=== PATIENT | female | born 2000 | race African-American/Black ===

== ENCOUNTER 2024-05-07 16:21 | Outpatient (CLI) | payer SELFPAY ==
[~2024-05-07] VITALS: Ht 167.6 cm; Wt 89.0 kg
[2024-05-07] VITALS (11 sets, daily range): BP systolic 119–164; BP diastolic 56–79
[2024-05-07] MEDS ORDERED: LABE100T6 PO (16:40)
[2024-05-07] MEDS ORDERED: ASPI-655 PO (16:40)
[2024-05-07] MEDS ORDERED: PRENTAB9 PO (16:40)
[2024-05-07] MEDS ORDERED: LABE200T5 PO (17:50)
[2024-05-07] MEDS: CALCIUM CARBONATE 500 MG CHEW U/D PO PRN (20:01)
[2024-05-07 20:26] LABS: HEMATOCRIT 34.3 % (36.0-47.0); HEMOGLOBIN 10.7 g/dl (12.0-15.5); MEAN CORPUSCULAR HEMOGLOBIN 24.4 pg (27.0-33.0); MEAN CORPUSCULAR HGB CONC 31.2 g/dl (32.0-36.5); MEAN CORPUSCULAR VOLUME 78.3 fl (80.0-96.0); PLATELET COUNT, AUTOMATED 177 10^3/uL (150-450); RED BLOOD COUNT 4.38 10^6/uL (4.00-5.40); WHITE BLOOD COUNT 5.5 10^3/uL (4.0-10.0)
[2024-05-07 20:45] LABS: TOTAL PROTEIN,RANDOM URINE 11.3 MG/DL (0.0-14.0)
[2024-05-07 20:46] LABS: URIC ACID 3.5 MG/DL (3.1-7.8)
[2024-05-07 20:48] LABS: LDH LACTATE DEHYDROGENASE 166 U/L (120-246)
[2024-05-07 20:50] LABS: ALBUMIN 2.9 G/DL (3.2-5.2); ALKALINE PHOSPHATASE 56 U/L (35-104); ALT/SGPT 18 U/L (7.0-40); AST/SGOT 17 U/L (<34); BILIRUBIN,TOTAL 0.4 MG/DL (0.3-1.2); BLOOD UREA NITROGEN 9 MG/DL (9-23); CARBON DIOXIDE LEVEL 23 MMOL/L (20-31); CHLORIDE LEVEL 105 MMOL/L (98-107); CREATININE FOR GFR 0.58 MG/DL (0.55-1.30); CREATININE,RANDOM URINE 72.8 MG/DL; GLOMERULAR FILTRATION RATE > 60.0 (>60); GLUCOSE, FASTING 95 MG/DL (60-100); SODIUM LEVEL 137 MMOL/L (136-145); TOTAL PROTEIN 6.7 G/DL (5.7-8.2)
== END 2024-05-07 22:30 | disposition home or self-care (01) ==
LOC: M LDO 16:21
PROVIDERS: ATTEND Obstetrics & Gynecology
DX: O10.012 Pre-existing essential hypertension complicating pregnancy, second trimester (principal); Z3A.23 23 weeks gestation of pregnancy; Z87.59 Personal history of other complications of pregnancy, childbirth and the puerperium; Z79.82 Long term (current) use of aspirin; Z87.51 Personal history of pre-term labor
CPT/HCPCS: 80053; 82570; 83615; 84156; 84550; 85027; G0463

== ENCOUNTER → 2024-05-19 | Outpatient (CLI) | payer OTHER ==
[~2024-05-19] MED LIST: ASPI-655 PO; LABE100T6 PO; LABE200T5 PO; PRENTAB9 PO
== END ==
LOC: M RAD 09:41
PROVIDERS: ATTEND Nurse Practitioner Family
DX: O10.012 Pre-existing essential hypertension complicating pregnancy, second trimester (principal)

== ENCOUNTER 2024-06-16 09:42 | Outpatient (CLI) | payer OTHER ==
[~2024-06-16] VITALS: Ht 167.6 cm; Wt 87.5 kg
[2024-06-16] MEDS ORDERED: HOME MED LIST COMPLETE! XX SCH (09:50)
[2024-06-16 09:58] VITALS: BP 138/81
[2024-06-16 10:41] VITALS: BP 139/83
[2024-06-16 11:48] VITALS: BP 133/82
== END 2024-06-16 12:28 | disposition home or self-care (01) ==
LOC: M LDO 09:42
PROVIDERS: ATTEND Advanced Practice Midwife
DX: O99.613 Diseases of the digestive system complicating pregnancy, third trimester (principal); O09.213 Supervision of pregnancy with history of pre-term labor, third trimester; O10.013 Pre-existing essential hypertension complicating pregnancy, third trimester; O09.292 Supervision of pregnancy with other poor reproductive or obstetric history, second trimester; O99.213 Obesity complicating pregnancy, third trimester; E66.09 Other obesity due to excess calories; K52.9 Noninfective gastroenteritis and colitis, unspecified; Z3A.29 29 weeks gestation of pregnancy
CPT/HCPCS: 59025; G0463

== ENCOUNTER → 2024-06-22 | Outpatient (CLI) | payer OTHER ==
[2024-06-22 13:44] LABS: HEMATOCRIT 36.4 % (36.0-47.0); HEMOGLOBIN 10.9 g/dl (12.0-15.5); MEAN CORPUSCULAR HEMOGLOBIN 23.4 pg (27.0-33.0); MEAN CORPUSCULAR HGB CONC 29.9 g/dl (32.0-36.5); MEAN CORPUSCULAR VOLUME 78.1 fl (80.0-96.0); PLATELET COUNT, AUTOMATED 280 10^3/uL (150-450); RED BLOOD COUNT 4.66 10^6/uL (4.00-5.40); WHITE BLOOD COUNT 7.2 10^3/uL (4.0-10.0)
[2024-06-22 14:23] LABS: GLUCOSE CHALLENGE TEST 1 HOUR 153 MG/DL (LESS THAN 140)
[2024-06-22 14:49] LABS: HIV 1&2 SCREEN NEGATIVE (NEGATIVE)
[2024-06-22 14:57] LABS: HEPATITIS C VIRUS ABY INDEX 0.16 INDEX (<0.8)
[2024-06-22 15:52] LABS: GC DNA AMPLIFICATION NEGATIVE (NEGATIVE)
== END ==
LOC: M PLALAB 10:44
PROVIDERS: ATTEND Nurse Practitioner Family
DX: Z34.82 Encounter for supervision of other normal pregnancy, second trimester (principal)

== ENCOUNTER → 2024-06-25 | Outpatient (CLI) | payer OTHER | LOC: M WHC 14:12 | PROVIDERS: ATTEND Nurse Practitioner Family | DX: O10.012 Pre-existing essential hypertension complicating pregnancy, second trimester (principal); Z3A.30 30 weeks gestation of pregnancy ==

== ENCOUNTER → 2024-06-29 | Outpatient (CLI) | payer OTHER ==
[~2024-06-29] MED LIST changes: +METR-265 PO
== END ==
LOC: M LAB 07:34
PROVIDERS: ATTEND Nurse Practitioner Family
DX: R73.09 Other abnormal glucose (principal)

== ENCOUNTER → 2024-06-30 | Outpatient (CLI) | payer OTHER ==
[2024-06-30 13:21] LABS: HEMATOCRIT 34.2 % (36.0-47.0); HEMOGLOBIN 10.3 g/dl (12.0-15.5); MEAN CORPUSCULAR HEMOGLOBIN 23.2 pg (27.0-33.0); MEAN CORPUSCULAR HGB CONC 30.1 g/dl (32.0-36.5); PLATELET COUNT, AUTOMATED 271 10^3/uL (150-450); RED BLOOD COUNT 4.44 10^6/uL (4.00-5.40); WHITE BLOOD COUNT 7.4 10^3/uL (4.0-10.0)
[2024-06-30 13:27] LABS: LDH LACTATE DEHYDROGENASE 193 U/L (120-246)
[2024-06-30 13:28] LABS: ALT/SGPT 17 U/L (7.0-40); AST/SGOT 20 U/L (<34); BILIRUBIN,TOTAL 0.3 MG/DL (0.3-1.2); GLOMERULAR FILTRATION RATE > 60.0 (>60)
[2024-06-30 13:39] LABS: TOTAL PROTEIN,RANDOM URINE 24.5 MG/DL (0.0-14.0)
[2024-06-30 13:43] LABS: CREATININE,RANDOM URINE 158.1 MG/DL
== END ==
LOC: M PLALAB 10:43
PROVIDERS: ATTEND Nurse Practitioner Family
DX: O10.013 Pre-existing essential hypertension complicating pregnancy, third trimester (principal)

== ENCOUNTER 2024-07-02 01:21 | Outpatient (CLI) | payer OTHER ==
[~2024-07-02] VITALS: Ht 167.6 cm; Wt 89.6 kg
[~2024-07-02 01:21] MED LIST changes: -METR-265 PO
[2024-07-02 01:36] VITALS: BP 144/85
[2024-07-02] MEDS ORDERED: HOME MED LIST COMPLETE! XX SCH (01:40)
[2024-07-02 02:28] LABS: KETONE, URINE AUTO RFX NEGATIVE (NEGATIVE); NITRITE, URINE AUTO RFX NEGATIVE (NEGATIVE); RBC, URINE AUTO RFX 0 /HPF (0-3); SQUAM EPITHELIAL CELL UR AURFX 6 /HPF (0-6); WBC, URINE AUTO RFX 5 /HPF (0-3)
[2024-07-02 02:45] LABS: LEUKOCYTE ESTERASE UR AUTO RFX 1+ (NEGATIVE)
[2024-07-02] MEDS ORDERED: METR-265 PO (03:07)
[2024-07-02] MEDS: metroNIDAZOLE (FLAGYL) 500MG TABLET PO ONE (03:13)
[2024-07-02 03:16] VITALS: BP 133/85
[2024-07-02] MEDS: BETAMETHASONE SOLUSPAN 6MG/ML 5ML VIAL IM STA (04:13)
== END 2024-07-02 04:28 | disposition home or self-care (01) ==
LOC: M LDO 01:21
PROVIDERS: ATTEND Obstetrics & Gynecology
DX: O23.593 Infection of other part of genital tract in pregnancy, third trimester (principal); O47.03 False labor before 37 completed weeks of gestation, third trimester; O10.013 Pre-existing essential hypertension complicating pregnancy, third trimester; O09.293 Supervision of pregnancy with other poor reproductive or obstetric history, third trimester; Z3A.31 31 weeks gestation of pregnancy
CPT/HCPCS: 59025; 81001; 82731; 87086; 96372; G0463; J0702

== ENCOUNTER 2024-07-03 02:49 | Inpatient (IN) | payer OTHER ==
[2024-07-03] VITALS (11 sets, daily range): BP systolic 113–142; BP diastolic 60–79; O2SAT 98–99
[~2024-07-03] VITALS: Ht 167.6 cm; Wt 88.8 kg
[~2024-07-03 02:49] MED LIST changes: +METR-265 PO
[2024-07-03] MEDS ORDERED: HOME MED LIST COMPLETE! XX SCH (03:05)
[2024-07-03] MEDS ORDERED: TRANEXAMIC ACID INJection 1,000 MG in NS 100 ML IV PRN (03:15)
[2024-07-03] MEDS ORDERED: OXYTOCIN INJ 10UNITS/ML 1ML VIAL IM PRN (03:15)
[2024-07-03] MEDS ORDERED: LIDOCAINE 1% MDV 20ML VIAL INFIL PRN (03:15)
[2024-07-03] MEDS ORDERED: CARBOPROST TROMETHAMINE 250 MCG/ML AMP IM PRN (03:15)
[2024-07-03] MEDS: LACTATED RINGER'S 1000 ML IV STA (03:43)
[2024-07-03] MEDS: MAGNESIUM *L&D* 4GM/100ML BAG (40MG/ML) IV ONE (03:43)
[2024-07-03] MEDS: PENICILLIN G POTASSIUM 5 MU IV 5 MU in DEXTROSE 5% (D5W) MINI-BAG PLU 100 ML IV STA (03:44)
[2024-07-03] MEDS: BETAMETHASONE SOLUSPAN 6MG/ML 5ML VIAL IM STA (03:44)
[2024-07-03 03:55] LABS: HEMATOCRIT 33.5 % (36.0-47.0); HEMOGLOBIN 10.2 g/dl (12.0-15.5); MEAN CORPUSCULAR HEMOGLOBIN 23.1 pg (27.0-33.0); MEAN CORPUSCULAR HGB CONC 30.4 g/dl (32.0-36.5); PLATELET COUNT, AUTOMATED 272 10^3/uL (150-450); RED BLOOD COUNT 4.41 10^6/uL (4.00-5.40); WHITE BLOOD COUNT 10.5 10^3/uL (4.0-10.0)
[2024-07-03] MEDS: MAG Sulf (OBGYN) 20GM/500ML 20,000 MG in IV 1 EA IV SCH (03:56)
[2024-07-03 03:59] LABS: TOTAL PROTEIN,RANDOM URINE 30.4 MG/DL (0.0-14.0)
[2024-07-03] MEDS ORDERED: INSULIN REGULAR IN 0.9 % NACL 100 UNIT in IV 1 EA IV SCH (04:00)
[2024-07-03] MEDS ORDERED: INSULIN IV RATE CHANGE DOCUMENTATION ML/HR XX SCH (04:00)
[2024-07-03] MEDS ORDERED: NS (Normal Saline) 0.9% 1,000 ML IV SCH (04:00)
[2024-07-03] MEDS ORDERED: D5W/0.9% SODIUM CHLORIDE 1,000 ML IV SCH (04:00)
[2024-07-03 04:04] LABS: CREATININE,RANDOM URINE 120.6 MG/DL
[2024-07-03 04:13] LABS: LDH LACTATE DEHYDROGENASE 188 U/L (120-246)
[2024-07-03 04:14] LABS: ALT/SGPT 19 U/L (7.0-40); AST/SGOT 18 U/L (<34); BILIRUBIN,TOTAL 0.4 MG/DL (0.3-1.2); CREATININE FOR GFR 0.55 MG/DL (0.55-1.30); GLOMERULAR FILTRATION RATE > 60.0 (>60)
[2024-07-03] MEDS ORDERED: EPIDURAL/PCA KEYS XX PRN (04:20)
[2024-07-03] MEDS ORDERED: ONDANSETRON 4MG 2ML VIAL IV PRN (04:20)
[2024-07-03] MEDS ORDERED: LR 500 ML IV PRN (04:20)
[2024-07-03] MEDS ORDERED: ePHEDrine SULFATE 25 MG/5 ML(5MG/ML) SYRINGE IVP PRN (04:20)
[2024-07-03] MEDS ORDERED: NALOXONE INJ 0.4MG/1ML VIAL IV PRN (04:20)
[2024-07-03] MEDS ORDERED: FENTANYL/ROPIVACAINE/NACL BAG 100 ML EPIDURAL SCH (04:20)
[2024-07-03] MEDS ORDERED: diphenhydrAMINE 50MG/ML VIAL IV PRN (04:20)
[2024-07-03] MEDS: OXYTOCIN DRIP 30 UNITS in IV 1 EA IV PRN (04:30)
[2024-07-03 04:35] LABS: CORD GAS ABE V -1.9; CORD GAS O2 SAT V 64.8 %; CORD GAS PCO2 V 40.1 mmHg; CORD GAS PH V 7.377 UNITS; CORD GAS PO2 V 24.8 mmHg; CORD GAS SBC V 22.1 MMOL/L; CORD GAS TCO2 V 24.3 MMOL/L
[2024-07-03 04:37] LABS: CORD GAS O2 SAT A 21.8 %; CORD GAS PCO2 A 48.5 mmHg; CORD GAS PH A 7.275 UNITS; CORD GAS PO2 A 12.2 mmHg; CORD GAS SBC A 18.7 MMOL/L; CORD GAS TCO2 A 23.5 MMOL/L
[2024-07-03 04:41] LABS: HIV 1&2 SCREEN NEGATIVE (NEGATIVE)
[2024-07-03] MEDS ORDERED: DOCUSATE SODIUM 100MG CAPSULE PO PRN (04:45)
[2024-07-03] MEDS ORDERED: ANUSOL HC CREAM 30GM TOP PRN (04:45)
[2024-07-03] MEDS ORDERED: MOM 30ML SUSPENSION UDC PO PRN (04:45)
[2024-07-03] MEDS ORDERED: ACETAMINOPHEN 325 MG TAB PO PRN (04:45)
[2024-07-03] MEDS ORDERED: RHOGAM 300MCG (1500IU) INJ IM SCH (04:45)
[2024-07-03] MEDS ORDERED: DIBUCAINE 1% OINTMENT 30GM TOP PRN (04:45)
[2024-07-03] MEDS ORDERED: IBUPROFEN 600MG TAB PO PRN (04:45)
[2024-07-03] MEDS: KETOROLAC 30 MG/ML 1ML VIAL IV ONE (05:09)
[2024-07-03] MEDS ORDERED: PEN G POT 3,000,000 UNIT/50 ML 3,000,000 UNIT in IV 1 EA IV SCH (07:45)
[2024-07-03] MEDS: LABETALOL 200 MG TAB PO SCH (08:13)
[2024-07-03] MEDS: PRENATAL VITAMINS CHEWABLE TABLET PO SCH (09:00)
[2024-07-03] MEDS: IBUPROFEN 800 MG TAB PO PRN (10:21)
[2024-07-03] MEDS: ACETAMINOPHEN 500 MG TAB PO PRN (15:32)
[2024-07-04 06:00] VITALS: BP 137/65; O2SAT 98
[2024-07-04] MEDS ORDERED: IBUP80TA PO (07:33)
[2024-07-04] MEDS ORDERED: ACET-683 PO (07:33)
[2024-07-04 08:37] VITALS: BP 135/63
[2024-07-04] MEDS: MEASLES,MUMPS,RUBELLA VACCINE INJ (MMR-II) SC.IMMUN ONE (08:39)
[2024-07-04 13:00] VITALS: BP 137/78
== END 2024-07-04 13:50 | disposition home or self-care (01) | DRG 806 ==
LOC: M LDO 02:49 → M LDI 03:07 → M OBS 06:15
PROVIDERS: ADMIT Advanced Practice Midwife; ATTEND Advanced Practice Midwife
PROC: 10E0XZZ Delivery of Products of Conception, External Approach (ICD-10-PCS; principal; 2024-07-03)
PROC: 10907ZC Drainage of Amniotic Fluid, Therapeutic from Products of Conception, Via Natural or Artificial Opening (ICD-10-PCS; 2024-07-03)
DX: O60.14X0 Preterm labor third trimester with preterm delivery third trimester, not applicable or unspecified (principal); Z37.0 Single live birth; O10.02 Pre-existing essential hypertension complicating childbirth; Z3A.31 31 weeks gestation of pregnancy; O24.429 Gestational diabetes mellitus in childbirth, unspecified control; O62.3 Precipitate labor